=== PATIENT | female | born 1940 | race Caucasian/White ===

== ENCOUNTER 2017-06-09 00:53 | Inpatient (IN) ==
[2017-06-09] MEDS ORDERED: PANTOPRAZOLE 40 MG VIAL IV STA (01:07)
[2017-06-09] MEDS ORDERED: SODIUM CHLORIDE 0.9% 500 ML IV STA (01:07)
[2017-06-09] MEDS ORDERED: ALUM/MAG/SIMETH/LIDO VISC 1:1 30 ML BOTTLE PO STA (01:07)
[2017-06-09] MEDS ORDERED: ONDANSETRON 4 MG/2 ML VIAL IV STA (01:07)
[2017-06-09] MEDS ORDERED: MORPHINE 2 MG/1 ML SYRINGE IV STA (01:09)
--- NOTE | 2017-06-09 01:26 | Emergency Department Note ---
Eva Baker Emily, am scribing for, and in the presence of, Kareem Simmons MD 01: 18. Iris Baker Charles R, MD, personally performed the services described in this documentation, ascribed by Marce Velasquez in my presence, and it is both accurate and complete . Arrival - Arrival Stated Complaint: anxiety, pain all over Mode of Arrival: Stretcher Limitations: No Limitations Source: Patient, EMS Time Seen by Provider: 06/09/17 01:00 - History of Present Illness HPI Narrative: Pt is a 76 y/o female who was brought to ED from halfway with c/o chest, shoulder, and abdomen with SOB that started earlier last night. Pt notes she was not given her klondipin medication yesterday and "don't know why they didn' t." Pt states she does feel nervous. EMS states pt said she didn't want to , touching different areas pt complained it hurts, and had one diarrhea movement this morning. Pt sees Dr. Baylee Toro at halfway, per EMS. PMHx of coronary artery disease, hyperlipidemia, and anxiety disorder. Onset (ago): hour(s) Consistency: constant Severity: mild Severity scale (1-10): 3 Quality: aching Review of System - Review of System 12 point system: reviewed and no additional remarkable complaints except as stated - Review of System Constitutional: Absent: fever Respiratory: Present: respiratory distress (SOB) Cardiovascular: Present: chest pain Gastrointestinal: Present: abdominal pain, diarrhea (one this morning). Absent : nausea, vomiting Genitourinary female: Absent: dysuria Musculoskeletal: Present: upper back pain (shoulders). Absent: neck pain Skin: Absent: rash Neurological: Absent: headache Psychiatric: Present: anxiety Medical,Surgical,& Family Hx - Family History Family History: noncontributory - Social History Marital Status: Single Lives With:: halfway Functional capacity: wheelchair bound Exam - General General appearance: alert, anxious (nervous) - Head Head exam: Present: atraumatic, normocephalic - Eye Eye exam: Present: PERRL, EOMI - ENT ENT exam: Present: mucous membranes moist. Absent: mucous membranes dry - Neck Neck exam: Present: full ROM. Absent: tenderness - Chest Chest inspection: Present: symmetric chest wall rise, tenderness (tender on palpation of chest wall and left shoulder ) - Respiratory Respiratory exam: Present: normal lung sounds bilaterally. Absent: respiratory distress - Cardiovascular Cardiovascular exam: Present: regular rate, normal rhythm, normal heart sounds - Abdominal Exam Abdominal exam: Present: soft, tenderness (RUQ tenderness; upper epigastric tenderness on palpation), hyperactive bowel sounds. Absent: guarding, rebound - Extremities Exam Extremities exam: Present: pedal edema (+1 BLE) - Neurological Exam Neurological exam: Present: alert, oriented X3, CN II-XII intact - Skin Skin exam: Present: warm, dry
[2017-06-09] MEDS ORDERED: PANTOPRAZOLE 40 MG VIAL IV ONE (01:39)
[2017-06-09] MEDS ORDERED: ONDANSETRON 4 MG/2 ML VIAL ONE (01:39)
[2017-06-09] MEDS ORDERED: ALUM/MAG/SIMETH/LIDO VISC 1:1 30 ML BOTTLE PO ONE (01:40)
[2017-06-09] MEDS ORDERED: MORPHINE 2 MG/1 ML SYRINGE ONE (01:40)
[2017-06-09 02:12] LABS: Basophils # 0.1 10*3/uL (0.0-0.2); Basophils % 1.9 % (0.0-0.8); Eosinophils # 0.2 10*3/uL (0.0-0.87); Eosinophils % 2.5 % (0.00-10.9); Hematocrit 36.2 VOL% (35.7-47.0); Hemoglobin 11.2 GM/DL (12.0-16.0); Immature Granulocytes % 0.3 %; Immature Granulocytes Absolute 0.02 #; Lymphocytes # 1.7 10*3/uL (1.4-4.0); Lymphocytes % 24.2 % (21.3-54.2); Mean Corpuscular HGB Conc 30.9 GM/DL (32-36); Mean Corpuscular Hemoglobin 24 PG (27-34); Mean Corpuscular Volume 78.2 FL (87-102); Monocytes # 0.6 10*3/uL (0.11-0.8); Monocytes % 8.9 % (1.7-12.7); Neutrophils # 4.3 10*3/uL (1.4-7.4); Neutrophils % 62.2 % (38.7-73.9); Platelet Count 446 T/CUMM (130-400); Red Blood Count 4.63 MC/CUMM (3.8-5.5); Red Cell Distribution Width 21.8 % (9.3-17.3); White Blood Count 6.8 T/CUMM (4-12)
[2017-06-09 02:17] LABS: Lactic Acid 1.1 MMOL/L (0.4-2.0)
[2017-06-09 02:20] LABS: Alanine Aminotransferase 15 U/L (13-56); Albumin 3.5 G/DL (3.4-5.0); Alkaline Phosphatase 92 U/L (45-117); Amylase 55 U/L (25-115); Aspartate Amino Transferase 14 U/L (0-37); Blood Urea Nitrogen 13 MG/DL (7-18); Calcium 9.3 MG/DL (8.5-10.1); Glucose 123 MG/DL (74-106); Magnesium 2.3 MG/DL (1.8-2.4); Osmolality,Calculated 275.7 MOS/KG (273-304); Potassium 3.7 MMOL/L (3.5-5.1); Sodium 138 MMOL/L (136-145); Troponin I Only < 0.015 NG/ML (0.00-0.045)
[2017-06-09 03:17] LABS: Apearance,Urine CLOUDY (Clear); Bacteria,Urine Many /HPF (Few); Bilirubin,Urine Negative (Negative); Blood, Urine Small mg/dL (Negative); Glucose,Urine (UA) Negative (Negative); Ketones,Urine 5 mg/dL (Negative); Mucus,Urine Moderate /LPF (Occasional); Nitrite,Urine Positive (Negative); Protein,Urine Negative; RBC,Urine 11 /HPF (0-4); Renal Epithelial Cells,Urine Occasional /HPF (<1); Squamous Epithelial Cell,Urine Occasional /HPF (0-10); Urine Color Amber (Yellow); Urine Specific Gravity 1.018 (1.001-1.035); WBC,Urine 315 /HPF (0-6)
[2017-06-09] MEDS ORDERED: LEVOFLOXACIN INJ 750 MG in PREMIX 1 EACH IV STA (03:19)
[2017-06-09] MEDS ORDERED: LEVOFLOXACIN INJ 150 ML IV ONE (03:20)
[2017-06-09] MEDS ORDERED: HYDROmorphone 2 MG/1 ML VIAL IV PRN (04:45)
[2017-06-09] MEDS ORDERED: SODIUM CHLORIDE 0.9% 1,000 ML IV SCH (04:45)
[2017-06-09] MEDS ORDERED: ONDANSETRON 4 MG/2 ML VIAL IV PRN (04:45)
[2017-06-09] MEDS: LEVOFLOXACIN INJ 500 MG in PREMIX 1 EACH IV SCH (04:57)
--- NOTE | 2017-06-09 06:52 | Ultrasound Report ---
Exam: US gallbladder Date:06/09/2017 1:07 AM Comparison:None Indication: Right upper quadrant abdominal pain The study was also reviewed by [facility]. Real-time ultrasound images are captured and archived. Positive sonographic Draper sign is reported. Shadowing highly echogenic foci compatible with gallstones are noted in the neck of the gallbladder. There is gallbladder wall thickening at 4.7 mm. There is no abnormal biliary dilatation. The liver is normal in size and is without focal mass lesion. There is hepatopedal flow in the portal vein. The pancreas is obscured by bowel gas. The right kidney measures 8.3 cm length and is without focal lesion. ORGAN MEASUREMENTS Liver Length: 12.7 cm Gallbladder Wall Thickness: 4.7 mm CBD: 5.5 mm Right kidney: Length: 8.3 centimeters Impression: Cholelithiasis, gallbladder wall thickening, and positive sonographic Draper sign PROCEDURE INTERPRETED AT [facility] DEPARTMENT OF RADIOLOGY Final Report Signed by: Dr. Nancy Tiwari
--- NOTE | 2017-06-09 07:34 | Order Completion Report ---
See report scanned to EMR
--- NOTE | 2017-06-09 07:35 | XRay Report ---
History: Abdominal pain Date: 06/09/2017 Study: Flat and erect abdomen Comparison exam: No previous abdominal x-ray available There is no evidence of pneumoperitoneum. The bowel gas pattern is nonobstructive without gross mass lesion. There is a mild to moderate amount of retained stool in the colon. There is a ringlike calcification suggesting 15 mm gallstone over the right upper quadrant. There is mild to moderate thoracolumbar spondylosis. Osteopenia. There is compression fracture at the L1 level, presumably chronic Impression: Cholelithiasis. No acute abdominal process otherwise PROCEDURE INTERPRETED AT [facility] DEPARTMENT OF RADIOLOGY Final Report Signed by: Dr. Nancy Tiwari
--- NOTE | 2017-06-09 07:39 | XRay Report ---
History: Right upper quadrant abdominal pain Date: 06/09/2017 Study: Chest x-ray AP portable Comparison exam: No previous chest x-ray available The cardiac silhouette is upper normal in size. There is no mediastinal mass. The pulmonary vasculature is not engorged. There is no gross pleural effusion. The lungs are generally clear for shallow breath. There is mild to moderate thoracic spondylosis. Impression: Shallow breath. No definite evidence of an acute cardiopulmonary process PROCEDURE INTERPRETED AT [facility] DEPARTMENT OF RADIOLOGY Final Report Signed by: Dr. Nancy Tiwari
--- NOTE | 2017-06-09 07:56 | Family Practice History&Phys ---
Assessment and Plan (1) Abdominal pain Status: Acute Assessment and plan: Patient was complaining of intermittent abdominal pain on admission but the symptoms had resolved at time of my evaluation. We will do further evaluation Current Visit: Yes (2) UTI (urinary tract infection) Status: Acute Assessment and plan: Have obtained cultures will start on empiric antibiotics Current Visit: Yes (3) Generalized anxiety disorder Status: Chronic Assessment and plan: Patient is severely anxious. Main complaint was anxiety on initial evaluation. She required benzodiazepines in order to control her anxiety disorder Current Visit: Yes (4) Degenerative joint disease Status: Chronic Assessment and plan: Stable at present Current Visit: Yes (5) History endometrial cancer Status: Chronic Assessment and plan: Stable at present Current Visit: Yes (6) History ablation for atrial fibrillation Status: Chronic Assessment and plan: Patient in normal sinus rhythm stable to present Current Visit: Yes History of Present Illness Chief complaint: Weakness, abdominal pain, History of present illness: Ms. Quinn is a 76 year old female Patient is a 76-year-old white female skilled nursing patient known to me who was admitted to the emergency room with complaint of bilateral shoulder pain, Chest pain,Weakness,And abdominal pain. Patient states symptoms began because the skilled nursing did not give her her appropriate dose of Klonopin. She was noted to be very anxious in the emergency room. Her lab studies in the emergency room are consistent with urinary tract infection. Abdominal x-rays and ultrasound were consistent with possible cholelithiasis. On questioning patient this a.m. she denies any abdominal pain or recurrent nausea or other symptoms that would be compatible with cholelithiasis. After discussion with patient she states that she would refuse surgery even if she has gallstones. I have ordered a HIDA scan for completeness. In view of history we will admit for further evaluation therapy Home Medications Medication Instructions Recorded Confirmed Type Acetaminophen Tab [Tylenol Tab] 2 tablet PO Q4HR PRN 06/09/17 06/09/17 History Buspirone HCl 5 mg PO BID 06/09/17 06/09/17 History Escitalopram [Lexapro] 10 mg PO DAILY 06/09/17 06/09/17 History Ferrous Sulfate [Iron] 325 mg PO DAILY 06/09/17 06/09/17 History Folic Acid Tab 1 mg PO DAILY 06/09/17 06/09/17 History Potassium Chloride 20 meq PO DAILY 06/09/17 06/09/17 History Torsemide 10 mg PO DAILY 06/09/17 06/09/17 History Trazodone HCl 50 mg PO BEDTIME 06/09/17 06/09/17 History clonazePAM TAB [KlonoPIN] 0.5 mg PO DAILY 06/09/17 06/09/17 History Allergies Allergy/AdvReac Type Severity Reaction Status Date / Time Penicillins Allergy HIVES Verified 06/09/17 03:09 Medical,Surgical,& Family Hx - Medical History Cardio: History of: Cardiac Dysrhythmia (Apparently has had an ablation in the past. Do not have records of this), Congenital Heart Disease, Hypertension Psychological: History of: Anxiety Disorders Reproductive: History of: Reproductive Cancer (History of endometrial carcinoma) - Surgical History Cardiac Surgeries: Sugical HX of: Cardiac Surgery (Apparently has had an ablation for atrial fibrillation in the past) Abdominal Surgeries: Surgical HX of: Appendectomy Reproductive Surgeries: Surgical HX of;: Hysterectomy - Family History Family History: Reports;: Family Cancer - Social History Smoking Status: Never smoker Have you smoked in the last 12 months: No Frequency of Alcohol Use: None Type of Drug Use: None Marital Status: 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 Functional capacity: wheelchair bound Exam - Constitutional Vitals: Period Temp Pulse Resp BP Sys/Givens Pulse Ox Last 24 Hr 98.2 F-98.4 F 97-97 18-20 157-160/76-97 94-99 General appearance: mild distress - Head Head exam: Present: normal inspection - ENT ENT exam: Present: normal exam - Respiratory Respiratory exam: Present: clear to auscultation bilaterally - Cardiovascular Cardiovascular exam: Present: irregular rhythm - GI/Abdominal GI/Abdominal exam: Present: normal bowel sounds, soft - Extremities Exam Extremities exam: Present: normal inspection - Back Exam Back exam: Present: normal inspection - Neurological Exam Neurological exam: Present: other (Patient is confused and agitated with dementia) - Psychiatric Psychiatric exam: Present: anxious (Patient is very anxious and confused.), flat affect, other - Skin Skin exam: Present: normal color Results - Labs CBC & BMP: 06/10/17 04:38 06/10/17 04:38
--- NOTE | 2017-06-09 08:26 | General Surgery Consult Note ---
Assessment and Plan - Time spent with patient Time spent with patient: Greater than 30 minutes (1) Cholelithiasis Status: Acute Assessment and plan: Impression: Cholelithiasis Plan: 1. Patient for a HIDA scan today. 2. Need to speak with family members to decide and help her make decisions about any possible surgery. 3. If symptoms do not match her gallstones may want consider CT scan to just be sure nothing else is going on since her main complaint was some diarrhea 4. Questions with the need to get cardiology to look at her prior to any surgery Current Visit: Yes Qualifiers: Cholelithiasis location: gallbladder Cholecystitis acuity: chronic Biliary obstruction: without biliary obstruction History of Present Illness Chief complaint: Admitted with multiple complaints and ultrasound of gallstones History of present illness: Ms. Quinn is a 76 year old female white who is in a custodial and after talking her seem somewhat confused and anxious at this time. She was brought to the emergency room and we not quite sure why. The notes listed she came in because of some complaint of shoulder pain questionable abdominal pain she describes that she only had some diarrhea and is a question that she was upset that she did not get some of her medications at the custodial. No clear history of fatty food intolerance or nausea and vomiting with eating at this time. Her lab studies were all within normal limits and she got an ultrasound gallbladder shows she has some gallstones the stone down the neck of the gallbladder. She denies any unusual epigastric pain or discomfort that I can tell at this point even though she seems somewhat confused and in denial. With the abdomen not unusually tenderness or no unusual guarding at this point time Dr. Toro is ordered a HIDA scan at this point. There is no family in the room to discuss and find it was going on with the lady or have a meaningful discussion at this time. She does have multiple medical problems with a history of some coronary artery disease in the past. It is unclear how significant her gallstones are at this point and will have to counter discussed this further with Dr. Toro and with family members. Certainly laparoscopic cholecystectomy could be performed question he at this point time was which she consent and thirdly is she having episodes of cholecystitis. Allergies Allergy/AdvReac Type Severity Reaction Status Date / Time Penicillins Allergy HIVES Verified 06/09/17 03:09 Medical,Surgical,& Family Hx - Medical History Cardio: History of: Congenital Heart Disease, Hypertension - Social History Smoking Status: Unknown if ever smoked Frequency of Alcohol Use: None Type of Drug Use: None 12 point system: reviewed and no additional remarkable complaints except as stated Exam - Constitutional Vitals: Period Temp Pulse Resp BP Sys/Givens Pulse Ox Last 24 Hr 96.4 F-98.4 F 97-97 18-20 157-163/69-97 94-99 General appearance: mild distress, other (Anxious) - Head Head exam: Present: normal inspection - ENT ENT exam: Present: normal exam - Neck Neck exam: Present: normal inspection - Respiratory Respiratory exam: Present: clear to auscultation bilaterally, rales - Cardiovascular Cardiovascular exam: Present: RRR - GI/Abdominal GI/Abdominal exam: Present: normal bowel sounds, tenderness (Difficult to really determine if she is anxious or she is truly having some tenderness in the epigastric area), soft. Absent: distended, guarding, Draper's sign - Extremities Exam Extremities exam: Present: normal inspection - Back Exam Back exam: Present: normal inspection - Neurological Exam Neurological exam: Present: alert, oriented X3, CN II-XII intact - Skin Skin exam: Present: normal color, warm, dry Results - Labs CBC & BMP: 06/09/17 01:45 06/09/17 01:45 Lab Results: I have reviewed the past 24 hour labs - Diagnostic Findings Procedure: Ultrasound: report reviewed by me (Ultrasound noted with stones in the gallbladder)
[2017-06-09] MEDS: DOCUSATE SODIUM 100 MG CAPSULE PO SCH ×2 (10:34→20:07)
[2017-06-09] MEDS: ENOXAPARIN 40 MG/0.4 ML SYRINGE SUBCUT SCH (10:34)
[2017-06-09] MEDS: PANTOPRAZOLE 40 MG VIAL IV SCH (10:34)
[2017-06-09] MEDS: clonazePAM 0.5 MG TABLET PO SCH ×4 (10:34→20:06)
--- NOTE | 2017-06-09 10:54 | Nuclear Medicine Report ---
Exam: Biliary Scan Date: 06/09/2017 Comparison: Gallbladder ultrasound, 06/09/2017 Reason: Right upper quadrant pain, cholelithiasis Technique: The patient was administered 5 mCi of technetium 99m Choletec IV. Images of the right upper quadrant were then acquired over 45 minutes. The patient was then administered 8 ounces of ensure orally with no symptoms. Gallbladder ejection fraction was then calculated. Findings: Satisfactory filling of the gallbladder with no bile duct obstruction. Ejection fraction of 37% at 60 minutes. Impression: Satisfactory filling of the gallbladder with no bile duct obstruction. The ejection fraction is at the lower range of normal at 37% at 60 minutes. PROCEDURE INTERPRETED AT [facility] DEPARTMENT OF RADIOLOGY Final Report Signed by: Dr. Karime Feliz
[2017-06-09] MEDS: ACETAMINOPHEN 325 MG TABLET PO PRN (13:45)
[2017-06-09] MEDS ORDERED: LORazepam 2 MG/1 ML VIAL IV ONE (17:29)
[2017-06-10] MEDS: clonazePAM 0.5 MG TABLET PO SCH ×2 (05:31→09:26)
[2017-06-10] MEDS: LEVOFLOXACIN INJ 500 MG in PREMIX 1 EACH IV SCH (05:32)
[2017-06-10 06:38] LABS: Basophils # 0.1 10*3/uL (0.0-0.2); Basophils % 1.7 % (0.0-0.8); Eosinophils # 0.2 10*3/uL (0.0-0.87); Eosinophils % 3.2 % (0.00-10.9); Hematocrit 32.8 VOL% (35.7-47.0); Immature Granulocytes % 0.2 %; Immature Granulocytes Absolute 0.01 #; Lymphocytes # 1.7 10*3/uL (1.4-4.0); Mean Corpuscular HGB Conc 30.5 GM/DL (32-36); Mean Corpuscular Hemoglobin 24 PG (27-34); Mean Platelet Volume 9.5 FL (9.6-12.0); Monocytes # 0.5 10*3/uL (0.11-0.8); Monocytes % 9.1 % (1.7-12.7); Neutrophils # 2.8 10*3/uL (1.4-7.4); Neutrophils % 52.8 % (38.7-73.9); Platelet Count 360 T/CUMM (130-400); Red Cell Distribution Width 21.6 % (9.3-17.3); White Blood Count 5.3 T/CUMM (4-12)
[2017-06-10 07:19] LABS: Albumin 3.1 G/DL (3.4-5.0); Bilirubin,Total 0.6 MG/DL (0.2-1.0); Calcium 8.9 MG/DL (8.5-10.1); Magnesium 2.6 MG/DL (1.8-2.4); Osmolality,Calculated 274.5 MOS/KG (273-304); Potassium 4.3 MMOL/L (3.5-5.1); Risk Ratio 3.8; Total Protein 6.3 G/DL (6.4-8.3); VLDL CHOLESTEROL 25.2 MG/DL
--- NOTE | 2017-06-10 08:04 | Discharge Summary ---
Hospital Course - Hospital Course Hospital Course: Ms. Quinn is a 76 year old female Patient is a 76-year-old white female half-way patient known to me who was admitted to the emergency room with complaint of bilateral shoulder pain, Chest pain,Weakness,And abdominal pain. Patient states symptoms began because the half-way did not give her her appropriate dose of Klonopin. She was noted to be very anxious in the emergency room. Her lab studies in the emergency room are consistent with urinary tract infection. Abdominal x-rays and ultrasound were consistent with possible cholelithiasis. On questioning patient this a.m. she denies any abdominal pain or recurrent nausea or other symptoms that would be compatible with cholelithiasis. After discussion with patient she states that she would refuse surgery even if she has gallstones. I have ordered a HIDA scan for completeness. In view of history we will admit for further evaluation therapy HOSPITAL COURSE -patient was admitted to hospital lab and x-ray studies obtained. Her evaluation in the emergency room was somewhat suspicious for cholelithiasis. Patient does have stones but her HIDA scan was unremarkable. She has not complained of any abdominal pain nausea vomiting or other complaints. Urinalysis consistent with urinary tract infection and culture is pending at time of discharge. She has been started on empiric Levaquin and I will follow cultures and make changes if needed. Patient is only complaint throughout admission has been anxiety. I have had to start on a regular routine of benzodiazepines orally. She has also required IV Ativan.. Patient is stable at time of discharge. She denies current complaints. I suspect we will end up having to adjust her anxiety medicines further back at the nursing care facility. [facility] discharge back to [facility].. Will follow up on urine culture for completeness. Diagnosis - Discharge Diagnosis (1) Abdominal pain Status: Acute (2) UTI (urinary tract infection) Status: Acute (3) Generalized anxiety disorder Status: Chronic (4) Degenerative joint disease Status: Chronic (5) History endometrial cancer Status: Chronic (6) History ablation for atrial fibrillation Status: Chronic Discharge Plan - Discharge Data Disposition: Disch/Xfer to Snf Condition at Discharge: Stable Discharge Diet: advance to your usual diet Activity: ambulate only with your walker Weight Bearing at Discharge: weight bear as tolerated Contact your physician if you experience:: fever over 101, Nausea/Vomiting, Shortness of breath - Discharge Medications New Levofloxacin Tab [Levaquin Tab] 500 mg PO DAILY #10 tablet clonazePAM TAB [KlonoPIN] 0.5 mg PO TID #90 tablet Continue Acetaminophen Tab [Tylenol Tab] 2 tablet PO Q4HR PRN PRN Reason: Pain Torsemide 10 mg PO DAILY Folic Acid Tab 1 mg PO DAILY Potassium Chloride 20 meq PO DAILY Escitalopram [Lexapro] 10 mg PO DAILY Buspirone HCl 5 mg PO BID Trazodone HCl 50 mg PO BEDTIME Ferrous Sulfate [Iron] 325 mg PO DAILY Discontinued clonazePAM TAB [KlonoPIN] 0.5 mg PO DAILY - Follow Up or Referral Follow Up: Billy Toro DO [Primary Care Provider] - (I will follow-up at nursing care facility) - Forms/Instructions Exam - Constitutional Vitals: Period Temp Pulse Resp BP Sys/Givens Pulse Ox Last 24 Hr 96.8 F-97.9 F 77-93 18-22 118-147/62-82 18-99 General appearance: mild distress - Head Head exam: Present: normal inspection - Eye Pupils: Present: DEISY - ENT ENT exam: Present: normal exam - Neck Neck exam: Present: normal inspection - Respiratory Respiratory exam: Present: clear to auscultation bilaterally - Cardiovascular Cardiovascular exam: Present: irregular rhythm - GI/Abdominal GI/Abdominal exam: Present: normal bowel sounds, soft - Extremities Exam Extremities exam: Present: normal inspection - Back Exam Back exam: Present: normal inspection - Neurological Exam Neurological exam: Present: altered, other (Patient is anxious and confused) - Psychiatric Psychiatric exam: Present: flat affect, other (Patient is very anxious and is confused with certain questions.) - Skin Skin exam: Present: normal color Discharge Results Procedures and tests throughout hospitalization: Pending Orders 06/09/17 Urine Culture Routine 06/09/17 07:31 Blood Culture Routine Labs on day of discharge: Labs from last 24 hours 06/10/17 06/10/17 04:38 04:38 WBC 5.3 RBC 4.10 Hgb 10.0 L Hct 32.8 L MCV 80.0 L MCH 24 L MCHC 30.5 L RDW 21.6 H Plt Count 360 MPV 9.5 L Neut % (Auto) 52.8 Lymph % (Auto) 33.0 [place] % (Auto) 9.1 Eos % (Auto) 3.2 Baso % (Auto) 1.7 H Neut # (Auto) 2.8 Lymph # (Auto) 1.7 [place] # (Auto) 0.5 Eos # (Auto) 0.2 Baso # (Auto) 0.1 Immature Gran % 0.2 Nucleated RBC % 0.0 Immature Gran # 0.01 Nucleated RBCs # 0.00 Immature Plt Fraction 0.0 Sodium 139 Potassium 4.3 Chloride 104 Carbon Dioxide 28 Anion Gap 11.3 BUN 7 Creatinine 0.80 GFR Calculation 76 BUN/Creatinine Ratio 8.00 Glucose 92 Calculated Osmolality 274.5 Calcium 8.9 Magnesium 2.6 H Total Bilirubin 0.60 AST 11 ALT 13 Alkaline Phosphatase 78 Total Protein 6.3 L Albumin 3.1 L Globulin 3.2 Albumin/Globulin Ratio 0.9 L Triglycerides 126 Cholesterol 194 LDL Cholesterol 119.0 VLDL Cholesterol 25.2 HDL Cholesterol 51 Heart Disease Risk Ratio 3.80 Preliminary micro results at discharge 06/09/17 07:31 Blood Culture - Preliminary Blood No growth at 1 day 06/09/17 07:31 Blood Culture - Preliminary Blood No growth at 1 day DS: Provider Date of admission: 06/09/17 03:10 Primary care physician: Billy Toro DO Attending physician on admission: Billy Toro DO Consults: 06/09/17 04:45 Consult to Case Mgmt/Social Srvs [CONS] Routine Reason for Case Mgmt/Social Srvs: Discharge Planning Consult to Physician [CONS] Routine Comment: Cholecystitis, abdominal pain Consulting Provider: Saad Shepherd When should Consulting Provider be notified: In am Person Notified: dr shepherd office Date Notified: 06/09/17 Time Notified: 09:47 Discharging clinician: Billy Toro DO
--- NOTE | 2017-06-10 08:57 | General Surgery Progress Note ---
Assessment and Plan - Time spent with patient Time spent with patient: Less than 30 minutes (1) Cholelithiasis Status: Acute Assessment and plan: Impression: Cholelithiasis Plan: 1. Patient for a HIDA scan today. 2. Need to speak with family members to decide and help her make decisions about any possible surgery. 3. If symptoms do not match her gallstones may want consider CT scan to just be sure nothing else is going on since her main complaint was some diarrhea 4. Questions with the need to get cardiology to look at her prior to any surgery 06/10/2017. Patient generally is doing pretty well this morning not complaining of anything and at this point seems to be set up to be discharged back to the [place] [facility]. She is tolerating diet without any unusual symptoms liver function studies are completely normal. HIDA scan did not suggest cystic duct obstruction at this point time. She apparently is on Levaquin for urinary tract infection is certainly would cover any problems associated with the gallbladder at this time. I agreed that since she really seems asymptomatic from the gallbladder observation be her best option in her. Would be glad to see her at any time if her symptoms are more positive for the gallbladder. Current Visit: Yes Qualifiers: Cholelithiasis location: gallbladder Cholecystitis acuity: chronic Biliary obstruction: without biliary obstruction Subjective Patient reports: Present: no new complaints, tolerating a regular diet, afebrile Exam - Constitutional Vitals: Period Temp Pulse Resp BP Sys/Givens Pulse Ox Last 24 Hr 96.8 F-97.9 F 77-93 18-22 118-147/62-82 18-99 General appearance: mild distress - Head Head exam: Present: normal inspection - ENT Mouth exam: Present: normal external inspection - Neck Neck exam: Present: normal inspection - Respiratory Respiratory exam: Present: clear to auscultation bilaterally, rales - Cardiovascular Cardiovascular exam: Present: RRR - GI/Abdominal GI/Abdominal exam: Present: hypoactive bowel sounds, soft. Absent: guarding, tenderness - Extremities Exam Extremities exam: Present: normal inspection - Back Exam Back exam: Present: normal inspection - Neurological Exam Neurological exam: Present: alert, oriented X3, CN II-XII intact - Skin Skin exam: Present: normal color, dry Results - Labs CBC & BMP: 06/10/17 04:38 06/10/17 04:38 Lab Results: I have reviewed the past 24 hour labs Specialty Discharge - Follow Up or Referrals Follow up with: Billy Toro DO [Primary Care Provider] - (I will follow-up at nursing care facility)
[2017-06-10] MEDS ORDERED: ESCITALOPRAM 10 MG TABLET PO SCH (09:00)
[2017-06-10] MEDS ORDERED: FOLIC ACID 1 MG TABLET PO SCH (09:00)
[2017-06-10] MEDS ORDERED: FERROUS SULFATE 325 MG TABLET PO SCH (09:00)
[2017-06-10] MEDS ORDERED: LEVOFLOXACIN 500 MG TABLET PO SCH (09:00)
[2017-06-10] MEDS ORDERED: TORSEMIDE 20 MG TABLET PO SCH (09:00)
[2017-06-10] MEDS ORDERED: busPIRone 5 MG TABLET PO SCH (09:00)
[2017-06-10] MEDS ORDERED: POTASSIUM CHLORIDE 20 MEQ TABLET PO SCH (09:00)
[2017-06-10] MEDS: DOCUSATE SODIUM 100 MG CAPSULE PO SCH (09:23)
[2017-06-10] MEDS: ENOXAPARIN 40 MG/0.4 ML SYRINGE SUBCUT SCH (09:27)
[2017-06-10] MEDS: PANTOPRAZOLE 40 MG VIAL IV SCH (09:28)
[2017-06-10 11:07] VITALS: BP 198/72
[2017-06-10] MEDS: ACETAMINOPHEN 325 MG TABLET PO PRN (12:09)
[2017-06-10] MEDS ORDERED: traZODone 50 MG TABLET PO SCH (21:00)
--- NOTE | 2017-06-15 21:37 | Order Completion Report ---
See report scanned to EMR
== END 2017-06-10 13:00 | DRG 445 ==
LOC: EDUNIT# → EDBD → N.ED 00:53 → N.EDINP 03:10 → N.2E 03:51
PROVIDERS: ADMIT Family Medicine; ATTEND Family Medicine

== ENCOUNTER 2019-02-21 11:34 | Inpatient (IN) ==
[2019-02-21 12:36] LABS: Basophils # 0.1 10*3/uL (0.0-0.2); Basophils % 1.3 % (0.0-0.8); Eosinophils # 0.1 10*3/uL (0.0-0.87); Eosinophils % 1.7 % (0.00-10.9); Hemoglobin 14.5 GM/DL (12.0-16.0); Immature Granulocytes % 0.1 %; Immature Granulocytes Absolute 0.01 #; Lymphocytes # 1.3 10*3/uL (1.4-4.0); Lymphocytes % 18.6 % (21.3-54.2); Mean Corpuscular HGB Conc 32.2 GM/DL (32-36); Mean Corpuscular Volume 89.5 FL (87-102); Mean Platelet Volume 9.9 FL (9.6-12.0); Monocytes % 8.1 % (1.7-12.7); Neutrophils % 70.2 % (38.7-73.9); Platelet Count 253 T/CUMM (130-400); Red Blood Count 5.03 MC/CUMM (3.8-5.5); Red Cell Distribution Width 14.6 % (9.3-17.3); White Blood Count 7.2 T/CUMM (4-12)
[2019-02-21 13:00] LABS: Albumin 3.7 G/DL (3.4-5.0); Bilirubin,Total 0.4 MG/DL (0.2-1.0); Osmolality,Calculated 275.5 MOS/KG (273-304); Total Protein 7.8 G/DL (6.4-8.3)
[2019-02-21 13:21] LABS: Apearance,Urine CLOUDY (Clear); Bacteria,Urine Occasional /HPF (Few); Bilirubin,Urine Negative (Negative); Blood, Urine Small mg/dL (Negative); Glucose,Urine (UA) Negative (Negative); Ketones,Urine Negative (Negative); Mucus,Urine Occasional /LPF (Occasional); Nitrite,Urine Negative (Negative); Protein,Urine Negative; RBC,Urine 5 /HPF (0-4); Squamous Epithelial Cell,Urine Moderate /HPF (0-10); Urine Color Yellow (Yellow); Urine Specific Gravity 1.016 (1.001-1.035); Urine Urobilinogen < 2.0 EU/DL (0.2-1.0); WBC,Urine 4 /HPF (0-6)
[2019-02-21] MEDS ORDERED: HYDROmorphone 2 MG/1 ML VIAL IV STA (13:42)
[2019-02-21] MEDS ORDERED: ONDANSETRON 4 MG/2 ML VIAL IV ONE (13:42)
[2019-02-21] MEDS ORDERED: ACETAMINOPHEN 325 MG TABLET PO PRN (15:38)
[2019-02-21] MEDS ORDERED: ONDANSETRON 4 MG/2 ML VIAL IV PRN (15:38)
[2019-02-21] MEDS ORDERED: LACTATED RINGERS 1,000 ML IV SCH (16:00)
[2019-02-21] MEDS ORDERED: MAGNESIUM HYDROXIDE SUSP 30 ML UDCUP PO PRN (16:34)
[2019-02-21] MEDS: HYDROmorphone 2 MG/1 ML VIAL IV PRN (18:47)
[2019-02-21] MEDS: POTASSIUM CHLORIDE INJ 40 MEQ in LACTATED RINGERS 1,000 ML IV SCH (18:50)
[2019-02-21] MEDS ORDERED: DOCUSATE SODIUM 100 MG CAPSULE PO SCH (21:00)
[2019-02-21] MEDS ORDERED: CIPROFLOXACIN INJ 400 MG in PREMIX 1 EACH IV SCH (22:00)
[2019-02-21] MEDS: FAMOTIDINE 20 MG/2 ML VIAL IV SCH (22:27)
[2019-02-21] MEDS: metroNIDAZOLE INJ 250 MG in IV BAG 1 EACH IV SCH (23:44)
[2019-02-22] MEDS: HYDROmorphone 2 MG/1 ML VIAL IV PRN ×3 (01:45→20:28)
[2019-02-22] MEDS: ONDANSETRON 4 MG/2 ML VIAL IV PRN ×2 (03:20→08:29)
[2019-02-22 04:41] LABS: Basophils # 0.1 10*3/uL (0.0-0.2); Basophils % 1.1 % (0.0-0.8); Eosinophils # 0.2 10*3/uL (0.0-0.87); Eosinophils % 2.8 % (0.00-10.9); Hematocrit 41.4 VOL% (35.7-47.0); Immature Granulocytes % 0.3 %; Immature Granulocytes Absolute 0.02 #; Lymphocytes # 1.2 10*3/uL (1.4-4.0); Lymphocytes % 18.3 % (21.3-54.2); Mean Corpuscular HGB Conc 31.4 GM/DL (32-36); Mean Corpuscular Volume 91.2 FL (87-102); Neutrophils % 67.5 % (38.7-73.9); Platelet Count 260 T/CUMM (130-400); Red Blood Count 4.54 MC/CUMM (3.8-5.5); Red Cell Distribution Width 14.8 % (9.3-17.3); White Blood Count 6.4 T/CUMM (4-12)
[2019-02-22 05:08] LABS: Calcium 8.8 MG/DL (8.5-10.1)
[2019-02-22] MEDS ORDERED: LEVOFLOXACIN INJ 500 MG in PREMIX 1 EACH IV ONE (05:38)
[2019-02-22] MEDS ORDERED: metroNIDAZOLE INJ 500 MG in PREMIX 1 EACH IV ONE (05:38)
[2019-02-22] MEDS: metroNIDAZOLE INJ 250 MG in IV BAG 1 EACH IV SCH (06:04)
[2019-02-22] MEDS: POTASSIUM CHLORIDE RIDER 10 MEQ in PREMIX 1 EACH IV PRN ×4 (06:31→11:07)
[2019-02-22] MEDS: LORazepam 2 MG/1 ML VIAL IV PRN (07:09)
[2019-02-22] MEDS: POTASSIUM CHLORIDE INJ 40 MEQ in LACTATED RINGERS 1,000 ML IV SCH ×2 (08:21→16:37)
[2019-02-22] MEDS ORDERED: PANTOPRAZOLE 40 MG VIAL IV SCH (09:00)
[2019-02-22] MEDS ORDERED: PANTOPRAZOLE 40 MG TABLET PO SCH ×2 (09:00)
[2019-02-22] MEDS: FAMOTIDINE 20 MG/2 ML VIAL IV SCH ×2 (09:29→21:42)
[2019-02-22] MEDS ORDERED: GLUCAGON 1 MG VIAL IM PRN (10:10)
[2019-02-22] MEDS ORDERED: DEXTROSE 50% 25 GM/50 ML VIAL IV PRN (10:10)
[2019-02-22] MEDS ORDERED: LIDOCAINE 1%/EPI INJ 20 ML VIAL ONE (11:57)
[2019-02-22] MEDS ORDERED: BUPIVACAINE 0.25% /EPI 10 ML VIAL ONE (11:57)
[2019-02-22] MEDS ORDERED: BUPIVACAINE MPF 0.5% /EPI 30 ML VIAL ONE (12:25)
[2019-02-22] MEDS ORDERED: fentaNYL 100 MCG/2 ML VIAL ONE ×2 (12:26→15:58)
[2019-02-22] MEDS ORDERED: DEXAMETHASONE 4 MG/1 ML VIAL ONE ×2 (12:26→15:58)
[2019-02-22] MEDS ORDERED: MIDAZOLAM 2 MG/2 ML VIAL ONE (12:26)
[2019-02-22] MEDS ORDERED: ONDANSETRON 4 MG/2 ML VIAL IV PRN (15:54)
[2019-02-22] MEDS ORDERED: PROPOFOL 200 MG/20 ML VIAL IV ONE (15:55)
[2019-02-22] MEDS ORDERED: MEPERIDINE 25 MG/1 ML VIAL ONE ×2 (15:56→16:10)
[2019-02-22] MEDS ORDERED: ONDANSETRON 4 MG/2 ML VIAL ONE ×3 (15:56→16:18)
[2019-02-22] MEDS ORDERED: SEVOFLURANE 1 UNIT/15 MINUTE INH ONE (15:56)
[2019-02-22] MEDS ORDERED: ePHEDrine 50 MG/ML AMP ONE (15:58)
[2019-02-22] MEDS ORDERED: GLYCOPYRROLATE 0.4 MG/2 ML VIAL ONE ×2 (15:58)
[2019-02-22] MEDS ORDERED: NEOSTIGMINE 10 MG/10 ML VIAL ONE (15:59)
[2019-02-22] MEDS ORDERED: PHENYLEPHRINE 1 MG/10 ML SYRINGE IV ONE (15:59)
[2019-02-22] MEDS ORDERED: ACETAMINOPHEN 1,000 MG/100 ML VIAL IV ONE (15:59)
[2019-02-22] MEDS ORDERED: ROCURONIUM 100 MG/10 ML VIAL IV ONE (15:59)
[2019-02-22] MEDS: MEPERIDINE 25 MG/1 ML VIAL IV PRN ×2 (16:00→16:15)
[2019-02-22] MEDS ORDERED: ONDANSETRON 4 MG/2 ML VIAL IV STA (16:20)
[2019-02-22 16:25] LABS: Apearance,Urine Slightly Hazy (Clear); Bilirubin,Urine Negative (Negative); Blood, Urine Small mg/dL (Negative); Glucose,Urine (UA) Negative (Negative); Hyaline Casts,Urine 5 /LPF (0-3); Ketones,Urine 80 mg/dL (Negative); Mucus,Urine Moderate /LPF (Occasional); Nitrite,Urine Negative (Negative); Protein,Urine 30 MG/DL; RBC,Urine 8 /HPF (0-4); Squamous Epithelial Cell,Urine Occasional /HPF (0-10); Urine Specific Gravity 1.025 (1.001-1.035); Urine Urobilinogen < 2.0 EU/DL (0.2-1.0); WBC,Urine 3 /HPF (0-6)
[2019-02-22 16:26] LABS: Urine Color Dark yellow (Yellow)
[2019-02-22] MEDS: TRACE ELEMENTS (5) 1 ML, MULTIVITAMIN INJ 10 ML in AMINO ACIDS/DEXT/LYTES 4.25-5% 2,000 ML IV SCH (17:01)
[2019-02-22] MEDS: FAT EMULSION 20% 250 ML IV SCH (17:02)
[2019-02-22 17:21] LABS: Hematocrit 42.1 VOL% (35.7-47.0); Hemoglobin 13.4 GM/DL (12.0-16.0)
[2019-02-22] MEDS: MORPHINE 4 MG/1 ML VIAL IV PRN ×2 (17:23→23:00)
[2019-02-22] MEDS: INSULIN REGULAR 100 UNIT/ML SUBCUT SCH (19:03)
[2019-02-22] MEDS: metroNIDAZOLE INJ 500 MG in PREMIX 1 EACH IV SCH (21:24)
[2019-02-22 23:01] LABS: Hematocrit 38.3 VOL% (35.7-47.0); Hemoglobin 12.3 GM/DL (12.0-16.0)
[2019-02-23] MEDS: POTASSIUM CHLORIDE INJ 40 MEQ in LACTATED RINGERS 1,000 ML IV SCH ×3 (00:02→12:22)
[2019-02-23] MEDS: LORazepam 2 MG/1 ML VIAL IV PRN ×3 (00:48→21:21)
[2019-02-23] MEDS: INSULIN REGULAR 100 UNIT/ML SUBCUT SCH ×4 (01:19→18:28)
[2019-02-23] MEDS: MORPHINE 4 MG/1 ML VIAL IV PRN ×2 (03:36→22:49)
[2019-02-23 05:05] LABS: Basophils % 0.1 % (0.0-0.8); Hematocrit 36.3 VOL% (35.7-47.0); Hemoglobin 11.7 GM/DL (12.0-16.0); Immature Granulocytes % 0.6 %; Immature Granulocytes Absolute 0.06 #; Lymphocytes # 0.7 10*3/uL (1.4-4.0); Lymphocytes % 6.1 % (21.3-54.2); Mean Corpuscular HGB Conc 32.2 GM/DL (32-36); Mean Corpuscular Volume 90.5 FL (87-102); Mean Platelet Volume 10.2 FL (9.6-12.0); Neutrophils % 85.2 % (38.7-73.9); Platelet Count 223 T/CUMM (130-400); Red Blood Count 4.01 MC/CUMM (3.8-5.5); Red Cell Distribution Width 14.8 % (9.3-17.3); White Blood Count 10.6 T/CUMM (4-12)
[2019-02-23] MEDS: metroNIDAZOLE INJ 500 MG in PREMIX 1 EACH IV SCH (05:09)
[2019-02-23] MEDS: ONDANSETRON 4 MG/2 ML VIAL IV PRN ×2 (05:15→12:23)
[2019-02-23 05:40] LABS: Calcium 8.8 MG/DL (8.5-10.1); Osmolality,Calculated 272.2 MOS/KG (273-304)
[2019-02-23] MEDS ORDERED: LORazepam 2 MG/1 ML VIAL ONE (08:49)
[2019-02-23] MEDS: FAMOTIDINE 20 MG/2 ML VIAL IV SCH ×2 (09:11→21:15)
[2019-02-23] MEDS ORDERED: LEVOFLOXACIN INJ 500 MG in PREMIX 1 EACH IV SCH (09:29)
[2019-02-23] MEDS: FAT EMULSION 20% 250 ML IV SCH (15:40)
[2019-02-23] MEDS: TRACE ELEMENTS (5) 1 ML, MULTIVITAMIN INJ 10 ML in AMINO ACIDS/DEXT/LYTES 4.25-5% 2,000 ML IV SCH (17:41)
[2019-02-24] MEDS: POTASSIUM CHLORIDE INJ 40 MEQ in LACTATED RINGERS 1,000 ML IV SCH ×3 (00:17→19:54)
[2019-02-24] MEDS: INSULIN REGULAR 100 UNIT/ML SUBCUT SCH ×4 (01:11→18:17)
[2019-02-24] MEDS: HYDROmorphone 2 MG/1 ML VIAL IV PRN ×2 (04:19→08:43)
[2019-02-24] MEDS: ONDANSETRON 4 MG/2 ML VIAL IV PRN ×3 (04:20→19:52)
[2019-02-24 05:12] LABS: Basophils % 0.4 % (0.0-0.8); Eosinophils # 0.1 10*3/uL (0.0-0.87); Eosinophils % 0.5 % (0.00-10.9); Hematocrit 39.1 VOL% (35.7-47.0); Hemoglobin 12.4 GM/DL (12.0-16.0); Immature Granulocytes % 0.5 %; Immature Granulocytes Absolute 0.05 #; Lymphocytes # 1.2 10*3/uL (1.4-4.0); Mean Corpuscular HGB Conc 31.7 GM/DL (32-36); Mean Corpuscular Volume 90.3 FL (87-102); Mean Platelet Volume 10.2 FL (9.6-12.0); Monocytes % 8.5 % (1.7-12.7); Neutrophils % 77.1 % (38.7-73.9); Platelet Count 226 T/CUMM (130-400); Red Blood Count 4.33 MC/CUMM (3.8-5.5); Red Cell Distribution Width 15.6 % (9.3-17.3); White Blood Count 9.2 T/CUMM (4-12)
[2019-02-24 05:44] LABS: Calcium 8.8 MG/DL (8.5-10.1); Osmolality,Calculated 274.8 MOS/KG (273-304)
[2019-02-24] MEDS: FAMOTIDINE 20 MG/2 ML VIAL IV SCH ×2 (10:09→21:15)
[2019-02-24] MEDS: LORazepam 2 MG/1 ML VIAL IV PRN ×2 (14:59→21:26)
[2019-02-24] MEDS: TRACE ELEMENTS (5) 1 ML, MULTIVITAMIN INJ 10 ML in AMINO ACIDS/DEXT/LYTES 4.25-5% 2,000 ML IV SCH (16:20)
[2019-02-25] MEDS: INSULIN REGULAR 100 UNIT/ML SUBCUT SCH ×3 (06:06→12:09)
[2019-02-25] MEDS: POTASSIUM CHLORIDE INJ 40 MEQ in LACTATED RINGERS 1,000 ML IV SCH (06:50)
[2019-02-25] MEDS: FAMOTIDINE 20 MG/2 ML VIAL IV SCH (09:40)
[2019-02-25 12:09] VITALS: BP 161/90
== END 2019-02-25 14:15 | disposition home or self-care (01) | DRG 330 ==
LOC: EDUNIT# → EDBD → N.ED 11:34 → N.EDINP 13:48 → N.4E 15:16 → N.ICU 02-22 15:48 → N.3E 02-23 15:42
PROVIDERS: ADMIT Family Medicine; ATTEND Family Medicine

== ENCOUNTER 2019-03-20 15:54 | Inpatient (IN) ==
[2019-03-20 16:37] LABS: Basophils # 0.1 10*3/uL (0.0-0.2); Basophils % 0.9 % (0.0-0.8); Eosinophils # 0.1 10*3/uL (0.0-0.87); Eosinophils % 0.6 % (0.00-10.9); Hematocrit 40.9 VOL% (35.7-47.0); Hemoglobin 13.9 GM/DL (12.0-16.0); Immature Granulocytes % 0.4 %; Immature Granulocytes Absolute 0.03 #; Lymphocytes # 1.6 10*3/uL (1.4-4.0); Lymphocytes % 21.2 % (21.3-54.2); Mean Corpuscular Volume 85.4 FL (87-102); Mean Platelet Volume 9.7 FL (9.6-12.0); Monocytes % 10.1 % (1.7-12.7); Neutrophils % 66.8 % (38.7-73.9); Platelet Count 318 T/CUMM (130-400); Red Blood Count 4.79 MC/CUMM (3.8-5.5); Red Cell Distribution Width 14.6 % (9.3-17.3); White Blood Count 7.7 T/CUMM (4-12)
[2019-03-20 17:05] LABS: Alanine Aminotransferase 15 U/L (13-56); Albumin 3.4 G/DL (3.4-5.0); Alkaline Phosphatase 92 U/L (45-117); Aspartate Amino Transferase 17 U/L (0-37); Bilirubin,Total < 0.39 MG/DL (0.2-1.0); Blood Urea Nitrogen 13 MG/DL (7-18); Calcium 8.9 MG/DL (8.5-10.1); Glucose 118 MG/DL (74-106); Osmolality,Calculated 277.5 MOS/KG (273-304); Total Protein 7.7 G/DL (6.4-8.3)
[2019-03-21] MEDS ORDERED: POTASSIUM CHLORIDE 20 MEQ TABLET PO STA (00:12)
[2019-03-21] MEDS ORDERED: ONDANSETRON 4 MG/2 ML VIAL ONE (01:35)
[2019-03-21] MEDS ORDERED: ACETAMINOPHEN 325 MG TABLET PO PRN (03:51)
[2019-03-21] MEDS ORDERED: MORPHINE 4 MG/1 ML VIAL IV PRN (03:51)
[2019-03-21] MEDS ORDERED: SODIUM CHLORIDE 0.9% 1,000 ML IV SCH (03:51)
[2019-03-21 03:54] LABS: Apearance,Urine CLEAR (Clear); Bacteria,Urine Many /HPF (Few); Bilirubin,Urine Negative (Negative); Blood, Urine Negative (Negative); Glucose,Urine (UA) Negative (Negative); Ketones,Urine Negative (Negative); Mucus,Urine Few /LPF (Occasional); Nitrite,Urine Negative (Negative); Protein,Urine 30 MG/DL; RBC,Urine 26 /HPF (0-4); Squamous Epithelial Cell,Urine Occasional /HPF (0-10); Urine Color Amber (Yellow); Urine Specific Gravity 1.021 (1.001-1.035); Urine Urobilinogen < 2.0 EU/DL (0.2-1.0); WBC,Urine 68 /HPF (0-6)
[2019-03-21] MEDS: CLINDAMYCIN INJ 600 MG in PREMIX 1 EACH IV SCH ×3 (04:18→20:18)
[2019-03-21 05:43] LABS: Basophils # 0.1 10*3/uL (0.0-0.2); Basophils % 0.9 % (0.0-0.8); Eosinophils # 0.1 10*3/uL (0.0-0.87); Eosinophils % 1.9 % (0.00-10.9); Hematocrit 38.4 VOL% (35.7-47.0); Hemoglobin 12.9 GM/DL (12.0-16.0); Immature Granulocytes % 0.3 %; Immature Granulocytes Absolute 0.02 #; Lymphocytes # 1.5 10*3/uL (1.4-4.0); Lymphocytes % 23.5 % (21.3-54.2); Mean Corpuscular HGB Conc 33.6 GM/DL (32-36); Mean Corpuscular Volume 86.5 FL (87-102); Monocytes % 11.4 % (1.7-12.7); Platelet Count 273 T/CUMM (130-400); Red Blood Count 4.44 MC/CUMM (3.8-5.5); Red Cell Distribution Width 14.7 % (9.3-17.3); White Blood Count 6.3 T/CUMM (4-12)
[2019-03-21 06:21] LABS: Albumin 3.2 G/DL (3.4-5.0); Bilirubin,Total 0.6 MG/DL (0.2-1.0); Calcium 8.9 MG/DL (8.5-10.1); Osmolality,Calculated 282.3 MOS/KG (273-304); Risk Ratio 4.98; VLDL CHOLESTEROL 23.8 MG/DL
[2019-03-21] MEDS ORDERED: POLYVINYL ALCOHOL 1.4% OPH SOLN 15 ML BOTTLE BOTH EYES PRN (08:24)
[2019-03-21] MEDS: SODIUM CHLOR 0.9% KCL 20 MEQ 20 MEQ/1,000 ML BAG IV SCH ×2 (09:12→21:49)
[2019-03-21] MEDS: POTASSIUM CHLORIDE RIDER 10 MEQ in PREMIX 1 EACH IV SCH ×3 (09:14→14:10)
[2019-03-21] MEDS: FERROUS SULFATE 325 MG TABLET PO SCH (09:19)
[2019-03-21] MEDS: SERTRALINE 25 MG TABLET PO SCH (09:19)
[2019-03-21] MEDS: FOLIC ACID 1 MG TABLET PO SCH (09:19)
[2019-03-21] MEDS: PANTOPRAZOLE 40 MG TABLET PO SCH (09:19)
[2019-03-21] MEDS: LISINOPRIL 5 MG TABLET PO SCH (09:19)
[2019-03-21] MEDS: clonazePAM 0.5 MG TABLET PO SCH ×3 (09:19→20:11)
[2019-03-21] MEDS: LORATADINE 10 MG TABLET PO SCH (09:19)
[2019-03-21] MEDS: DOCUSATE SODIUM 100 MG CAPSULE PO SCH ×2 (09:19→20:10)
[2019-03-21] MEDS: busPIRone 5 MG TABLET PO SCH ×2 (09:19→20:12)
[2019-03-21] MEDS: FUROSEMIDE 20 MG TABLET PO SCH (09:19)
[2019-03-21] MEDS: traMADol 50 MG TABLET PO PRN ×2 (09:22→14:09)
[2019-03-21] MEDS: traZODone 50 MG TABLET PO SCH (20:11)
[2019-03-22 04:53] LABS: Basophils # 0.1 10*3/uL (0.0-0.2); Basophils % 1.1 % (0.0-0.8); Eosinophils # 0.3 10*3/uL (0.0-0.87); Hematocrit 33.6 VOL% (35.7-47.0); Immature Granulocytes % 0.4 %; Immature Granulocytes Absolute 0.02 #; Lymphocytes # 1.2 10*3/uL (1.4-4.0); Lymphocytes % 21.8 % (21.3-54.2); Mean Corpuscular HGB Conc 32.7 GM/DL (32-36); Mean Corpuscular Volume 88.7 FL (87-102); Monocytes % 10.5 % (1.7-12.7); Neutrophils % 61.2 % (38.7-73.9); Platelet Count 220 T/CUMM (130-400); Red Blood Count 3.79 MC/CUMM (3.8-5.5); Red Cell Distribution Width 15.4 % (9.3-17.3); White Blood Count 5.6 T/CUMM (4-12)
[2019-03-22] MEDS: CLINDAMYCIN INJ 600 MG in PREMIX 1 EACH IV SCH (05:21)
[2019-03-22 05:29] LABS: Alanine Aminotransferase < 9 U/L (13-56); Albumin 2.8 G/DL (3.4-5.0); Alkaline Phosphatase 70 U/L (45-117); Aspartate Amino Transferase 12 U/L (0-37); Blood Urea Nitrogen 13 MG/DL (7-18); Calcium 8.4 MG/DL (8.5-10.1); Ferritin 27.7 ng/ml (8-252); Glucose 95 MG/DL (74-106); Osmolality,Calculated 285.8 MOS/KG (273-304)
[2019-03-22] MEDS: POTASSIUM CHLORIDE RIDER 10 MEQ in PREMIX 1 EACH IV SCH ×2 (09:49→12:37)
[2019-03-22] MEDS: DOCUSATE SODIUM 100 MG CAPSULE PO SCH ×3 (09:52→20:58)
[2019-03-22] MEDS: LISINOPRIL 5 MG TABLET PO SCH (09:52)
[2019-03-22] MEDS: clonazePAM 0.5 MG TABLET PO SCH ×3 (09:52→20:57)
[2019-03-22] MEDS: FOLIC ACID 1 MG TABLET PO SCH (09:52)
[2019-03-22] MEDS: PANTOPRAZOLE 40 MG TABLET PO SCH (09:52)
[2019-03-22] MEDS: FUROSEMIDE 20 MG TABLET PO SCH (09:52)
[2019-03-22] MEDS: DIPHENOXYLATE/ATROPINE 2.5-0.025 MG TABLET PO PRN ×2 (09:52→17:06)
[2019-03-22] MEDS: busPIRone 5 MG TABLET PO SCH ×2 (09:53→20:57)
[2019-03-22] MEDS: FERROUS SULFATE 325 MG TABLET PO SCH (09:53)
[2019-03-22] MEDS: LORATADINE 10 MG TABLET PO SCH (09:53)
[2019-03-22] MEDS: SERTRALINE 25 MG TABLET PO SCH (09:53)
[2019-03-22] MEDS: traMADol 50 MG TABLET PO PRN (09:56)
[2019-03-22] MEDS ORDERED: TUBERCULIN SKIN TEST 0.1 ML SYRINGE INTRADERM ONE (10:22)
[2019-03-22] MEDS: ONDANSETRON 4 MG/2 ML VIAL IV PRN (12:01)
[2019-03-22] MEDS: LEVOFLOXACIN INJ 500 MG in PREMIX 1 EACH IV SCH (13:52)
[2019-03-22] MEDS ORDERED: POTASSIUM CHLORIDE 20 MEQ TABLET PO PRN (13:58)
[2019-03-22] MEDS: POTASSIUM CHLORIDE 20 MEQ TABLET PO PRN ×2 (15:18→20:57)
[2019-03-22] MEDS: SODIUM CHLOR 0.9% KCL 20 MEQ 20 MEQ/1,000 ML BAG IV SCH (15:21)
[2019-03-22] MEDS: traZODone 50 MG TABLET PO SCH (20:57)
[2019-03-23 04:33] LABS: Basophils # 0.1 10*3/uL (0.0-0.2); Basophils % 0.9 % (0.0-0.8); Eosinophils # 0.4 10*3/uL (0.0-0.87); Hematocrit 34.3 VOL% (35.7-47.0); Hemoglobin 10.7 GM/DL (12.0-16.0); Immature Granulocytes % 0.3 %; Immature Granulocytes Absolute 0.02 #; Lymphocytes # 1.1 10*3/uL (1.4-4.0); Lymphocytes % 19.6 % (21.3-54.2); Mean Corpuscular HGB Conc 31.2 GM/DL (32-36); Mean Corpuscular Volume 90.5 FL (87-102); Mean Platelet Volume 10.2 FL (9.6-12.0); Monocytes % 9.6 % (1.7-12.7); Neutrophils % 63.6 % (38.7-73.9); Platelet Count 215 T/CUMM (130-400); Red Blood Count 3.79 MC/CUMM (3.8-5.5); Red Cell Distribution Width 15.7 % (9.3-17.3); White Blood Count 5.8 T/CUMM (4-12)
[2019-03-23 04:52] LABS: Alanine Aminotransferase 9 U/L (13-56); Albumin 2.7 G/DL (3.4-5.0); Alkaline Phosphatase 68 U/L (45-117); Aspartate Amino Transferase 10 U/L (0-37); Bilirubin,Total < 0.39 MG/DL (0.2-1.0); Blood Urea Nitrogen 11 MG/DL (7-18); Calcium 8.1 MG/DL (8.5-10.1); Glucose 89 MG/DL (74-106); Osmolality,Calculated 285.7 MOS/KG (273-304); Total Protein 5.8 G/DL (6.4-8.3)
[2019-03-23] MEDS: SODIUM CHLOR 0.9% KCL 20 MEQ 20 MEQ/1,000 ML BAG IV SCH ×2 (05:00→18:00)
[2019-03-23] MEDS: DIPHENOXYLATE/ATROPINE 2.5-0.025 MG TABLET PO PRN ×2 (06:42→13:10)
[2019-03-23] MEDS: traMADol 50 MG TABLET PO PRN ×2 (06:42→13:10)
[2019-03-23] MEDS: POTASSIUM CHLORIDE 20 MEQ TABLET PO PRN (06:44)
[2019-03-23] MEDS: LEVOFLOXACIN INJ 500 MG in PREMIX 1 EACH IV SCH (09:00)
[2019-03-23] MEDS: LORATADINE 10 MG TABLET PO SCH (09:00)
[2019-03-23] MEDS: DOCUSATE SODIUM 100 MG CAPSULE PO SCH ×2 (09:01→20:38)
[2019-03-23] MEDS: FOLIC ACID 1 MG TABLET PO SCH (09:01)
[2019-03-23] MEDS: FUROSEMIDE 20 MG TABLET PO SCH (09:01)
[2019-03-23] MEDS: SERTRALINE 25 MG TABLET PO SCH (09:01)
[2019-03-23] MEDS: busPIRone 5 MG TABLET PO SCH ×2 (09:01→20:35)
[2019-03-23] MEDS: FERROUS SULFATE 325 MG TABLET PO SCH (09:01)
[2019-03-23] MEDS: LISINOPRIL 5 MG TABLET PO SCH (09:01)
[2019-03-23] MEDS: PANTOPRAZOLE 40 MG TABLET PO SCH (09:01)
[2019-03-23] MEDS: clonazePAM 0.5 MG TABLET PO SCH ×3 (09:01→20:36)
[2019-03-23] MEDS: ONDANSETRON 4 MG/2 ML VIAL IV PRN (09:07)
[2019-03-23] MEDS: metroNIDAZOLE 250 MG TABLET PO SCH ×2 (16:08→20:35)
[2019-03-23] MEDS: traZODone 50 MG TABLET PO SCH (20:36)
[2019-03-24 07:57] VITALS: BP 110/62
[2019-03-24] MEDS: SODIUM CHLOR 0.9% KCL 20 MEQ 20 MEQ/1,000 ML BAG IV SCH (09:42)
[2019-03-24] MEDS: metroNIDAZOLE 250 MG TABLET PO SCH (09:46)
[2019-03-24] MEDS: PANTOPRAZOLE 40 MG TABLET PO SCH (09:46)
[2019-03-24] MEDS: clonazePAM 0.5 MG TABLET PO SCH (09:46)
[2019-03-24] MEDS: LORATADINE 10 MG TABLET PO SCH (09:46)
[2019-03-24] MEDS: FUROSEMIDE 20 MG TABLET PO SCH (09:46)
[2019-03-24] MEDS: FOLIC ACID 1 MG TABLET PO SCH (09:46)
[2019-03-24] MEDS: busPIRone 5 MG TABLET PO SCH (09:47)
[2019-03-24] MEDS: LEVOFLOXACIN INJ 500 MG in PREMIX 1 EACH IV SCH ×2 (09:47→10:19)
[2019-03-24] MEDS: SERTRALINE 25 MG TABLET PO SCH (09:47)
[2019-03-24] MEDS: traMADol 50 MG TABLET PO PRN (09:47)
[2019-03-24] MEDS: LISINOPRIL 5 MG TABLET PO SCH ×2 (09:47→10:20)
[2019-03-24] MEDS: DOCUSATE SODIUM 100 MG CAPSULE PO SCH (09:47)
[2019-03-24] MEDS: FERROUS SULFATE 325 MG TABLET PO SCH (09:47)
[2019-03-24] MEDS ORDERED: NITROFURANTOIN MACRO/MONO 100 MG CAPSULE PO SCH (11:30)
== END 2019-03-24 10:10 | DRG 690 ==
LOC: N.ED 15:54 → N.EDINP 15:54 → N.4E 03-21 01:48
PROVIDERS: ADMIT Family Medicine; ATTEND Family Medicine